=== PATIENT | male | born 1980 | race Caucasian/White ===

== ENCOUNTER → 2016-07-25 | Outpatient (CLI) | payer BC ==
--- NOTE | 2016-07-25 14:22 | DIAGNOSTIC IMAGING REPORT ---
NUCLEAR HEPATOBILIARY SCAN CLINICAL HISTORY: Right upper quadrant abdominal pain. COMPARISON STUDY: No priors. TECHNIQUE: Dynamic images of the liver and anterior abdomen were obtained every 5 minutes for a total of 45 minutes following the IV administration of 5.5mCi of technetium 99m Choletec. FINDINGS: The hepatobiliary scan shows prompt and homogeneous hepatic uptake. There is visualized activity within the intra and extrahepatic biliary tree at 10 minutes, and within the gallbladder at 25 minutes. There is normal biliary to bowel transit, with small bowel visualized by 15 minutes. IMPRESSION: Unremarkable nuclear hepatobiliary scan. There is no scintigraphic evidence of cholecystitis. Electronically signed by: Srini Martinez M.D. 07/25/2016 2:20 PM Dictated Date/Time: 07/25/2016 2:19 PM
== END | disposition home or self-care (01) ==
LOC: C.NUCL 12:29
PROVIDERS: ATTEND Internal Medicine
DX: R10.9 Unspecified abdominal pain (principal)

== ENCOUNTER → 2016-08-06 | Outpatient (CLI) | payer BC ==
--- NOTE | 2016-08-06 13:55 | DIAGNOSTIC IMAGING REPORT ---
Nuclear gastric emptying study: CLINICAL HISTORY: Abdominal pain. COMPARISON STUDY: None TECHNIQUE: Following the oral administration of 1 mCi of technetium 99m sulfur colloid in egg sandwich and 8 ounces of water, static abdominal images were obtained anteriorly and posteriorly at 0 minutes, 1 hour, 2 hour, and 4 hour time intervals. Gastric emptying was calculated utilizing the geometric mean method. FINDINGS: There is approximately 71% gastric activity remaining at the 1 hour time interval (normal is less than 90%), 36% at the 2 hour time interval (normal is less than 60%), and 3% remaining at the 4 hour time interval (normal is less than 10%). IMPRESSION: No evidence of delayed gastric emptying. Electronically signed by: Venancio Nielsen M.D. 08/06/2016 1:53 PM Dictated Date/Time: 08/06/2016 1:53 PM
== END ==
LOC: C.NUCL 08:54
PROVIDERS: ATTEND Internal Medicine
DX: R10.9 Unspecified abdominal pain (principal)

== ENCOUNTER → 2016-08-19 | Outpatient (CLI) | payer BC ==
--- NOTE | 2016-08-19 16:26 | DIAGNOSTIC IMAGING REPORT ---
ABDOMEN AND PELVIS CT WITH IV AND ORAL CONTRAST CT DOSE: 634.84 mGy.cm HISTORY: Pain R10.9 Abdominal pain TECHNIQUE: Multiaxial CT images of the abdomen and pelvis were performed following the use of intravenous and oral contrast. COMPARISON STUDY: None. FINDINGS: The lung bases are clear. The liver, spleen, gallbladder, pancreas, kidneys, and adrenal glands are within normal limits. No bowel wall thickening or obstruction. The pelvic organs are unremarkable. No suspicious lytic or blastic osseous lesions. IMPRESSION: No significant abnormality identified within the abdomen or pelvis. Electronically signed by: Casimiro Mcqueen M.D. 08/19/2016 4:24 PM Dictated Date/Time: 08/19/2016 4:20 PM
== END | disposition home or self-care (01) ==
LOC: C.CTS 13:57
PROVIDERS: ATTEND Internal Medicine
DX: R10.9 Unspecified abdominal pain (principal)